=== PATIENT | female | born 1985 | race Caucasian/White ===

== ENCOUNTER 2016-07-10 09:10 | Inpatient (IN) ==
[~2016-07-10 09:10] MED LIST: *HR* Oxytocin 10 UNIT/ML VIAL IM ONE
--- NOTE | 2016-07-10 09:15 | Anesthesia Evaluation PreOp ---
Date of Encounter: 07/10/16 Time of Encounter: 09:12 - Past History Planned Operation: vaginal delivery/potential for csection Cardiac History: Denies any Significant Hx Pulmonary History: Denies Any Significant HX SERVICE AIDE History: Denies Any Significant HX Other Medical History: Denies Any Significant HX Anesthesia History: No Prior Anesthetic Complications, Past Anesthesia (wisdom teeth) : Yes Alcohol Use: none Drug use: none - Meds/Allergy Pre-op Review Medications Reviewed: Yes Allergies Reviewed: No Beta Blockers on Current Med List: No Anesthesia Exam BP123/62 P 93 R 18 Height: 5'5" Weight: 72kg NPO (# of Hours): 2 Pain Scale: 10 (with contractions) Pain Scale Used: Numeric (1 - 10) - HEENT Pupil (Motor): Pupils equal Mallampati: II Teeth: Normal Oral Opening: Greater than 3 - SERVICE AIDE SERVICE AIDE Motor: Normal RUE, Normal LUE, Normal RLE, Normal LLE, Normal Face SERVICE AIDE Sensory: Normal: RUE, LUE, RLE, LLE, Face - Cardiac Rhythm: Regular Murmur: None JVD: No Carotid Bruit: No - Pulmonary Breath Sounds: bilateral Clear Respiratory Effort: Symmetrical Anesthesia Assess/Plan ASA Score: 2 Modified Jaskaran Scale for Level of Consciousness: Cooperative, oriented, and tranquil Anesthetic Plan: General Autologous Blood: No Monitoring Plan: Standard Monitors Recovery Plan: PACU
[2016-07-10] MEDS ORDERED: Naloxone 0.4 MG/ML INJ IVP PRN (09:20)
[2016-07-10] MEDS ORDERED: Famotidine 20 MG/2 ML VIAL IVP PRN (09:20)
[2016-07-10 09:50] LABS: Basophils % 0.2 %; Eosinophils % 0.2 %; Hematocrit 34.6 % (35.3-44.9); Hemoglobin 11.8 g/dL (11.5-15.4); Immature Granulocytes % 0.8 % (0-4); Lymphocytes # 3.1 K/mcL (0.6-4.6); Lymphocytes % 18.4 %; Mean Corpuscular HGB Conc 34.1 g/dL (31.6-35.5); Mean Corpuscular Hemoglobin 30.9 pg (28.0-33.3); Mean Corpuscular Volume 90.6 fL (83.0-100.0); Mean Platelet Volume 11.1 fL (9.4-12.4); Monocytes # 0.8 K/mcL (0.0-1.3); Monocytes % 4.6 %; Neutrophils # 12.7 K/mcL (1.6-8.9); Platelet Count 210 K/mcL (140-400); Red Blood Count 3.82 M/mcL (3.82-4.97); Red Cell Distribution Width 12.9 % (11.5-14.5); Segmented Neutrophils % 75.8 %
[2016-07-10] MEDS ORDERED: Oxytocin 20 units/ LR 1000 mL 20 UNIT/1,000 ML BAG IVC ONE (10:07)
--- NOTE | 2016-07-10 10:22 | OB/GYN Procedure Note ---
Delivery - Delivery Date: 07/10/16 Provider: Lisa Garrett Intrapartum events: precipitous labor- <3hr Delivery induction: none Delivery monitor: external FHT Anesthesia: none Estimated Blood Loss: 150 - Infant (s) Infant A Infant Delivery Date: 07/10/16 Delivery Time: 10:00 Presentation: vertex Position: OA Route of delivery: Gender: Male Viability: Viable at 1 minute: 9 at 5 mins: 9 Shoulder Dystocia: not encountered Specimens collected: cord blood Placenta: spontaneous Cord: 3 umbilical vessels - Repair Episiotomy: none Laceration Description: Labial, Superficial - Complications Delivery complications: none Delivery comments: Patient on hands and knees and stated felt she needed to push. Maternal bearing down efforts to on liveborn male. Mother on hands and knees, vertex delivered OA, shoulders easily followed. No nuchal or shoulder dystocia encountered. passed through maternal legs and held by mother. Mother flipped to seated position and placed skin to skin. Cord clamped and cut after pulsations stopped. Perineum with superficial lacerations to labia. Placenta delivered spontaneously and intact (magali). Fundus firm Pitocin started. EBL 150. - Disposition Mom disposition: stable in LDR disposition: stable in LDR
--- NOTE | 2016-07-10 10:40 | OB/GYN History & Physical ---
Date of Encounter: 07/10/16 Time of Encounter: 10:34 Assessment and Plan (1) 38 weeks gestation of Current visit: Yes Status: Acute (2) Rupture of membranes with clear amniotic fluid Current visit: Yes Status: Acute admitted for labor to [facility] of liveborn male. See delivery note. History of Present Illness Chief complaint: labor HPI: Ms. Mata is a 30 year old female 38+2 gestation presents in labor after SROM, clear fluid, at 0500. Contractions soon started. + movement, denies vaginal bleeding. only complicated by lower uterine segment fibroid, seen by MFM. Labs:O+, GBS-, Rubella immune, all other serologies negative Past Med Surg Social Fam HX - Past Medical History Medical history: other Psychiatric history: no psych history - Past Surgical History Surgical History: no surgical history - Social History Smoking Status: Never smoker Smokeless Tobacco Status: No Alcohol use: none Drug use: none - Family History Mother Living Status: Still Living Hx Family Medical Disorders: No (Denies history) Obstetrical History - Pregnancies : 2 Para: 1 Term: 1 : 0 Ab's: 0 Livin Medications and Allergies Calcium + D Soft Chewable Tab 1 tab PO DAILY 07/10/16 [History] Formula Tablet 1 tab PO DAILY 07/10/16 [History] Allergies No Known Allergies Allergy (Verified 07/10/16 09:18) Review of System OB All systems PM: reviewed and no additional remarkable complaints except as stated Exam - Constitutional Constitutional: well developed, well nourished, no acute distress, average body habitus - Neck Neck exam: full ROM - Lungs Respiratory exam: CTAB - Cardiovascular Cardiovascular exam: RRR, +S1, +S2 - Abdomen Abdomen: Present: bowel sounds normal, gravid, non tender - Extremities Extremities exam: normal capillary refill, normal inspection - Vagina Vagina: Present: normal moisture - Anus/Rectum Anus/Rectum: Present: normal perianal skin Results Result Diagrams: 07/10/16 09:14 Abnormal lab results WBC 16.7 K/mcL (4.3-11.1) H 07/10/16 09:14 Hct 34.6 % (35.3-44.9) L 07/10/16 09:14 Neutrophils # 12.7 K/mcL (1.6-8.9) H 07/10/16 09:14 All other labs normal. - VTE Reasons for not Prescribing Prophylaxis: Treatment not Indicated - Low risk for VTE
[2016-07-10] MEDS ORDERED: Acetaminophen 325 MG TABLET PO PRN (13:07)
[2016-07-10] MEDS ORDERED: Lanolin 7 G OINT...G. TP PRN (13:07)
[2016-07-10] MEDS ORDERED: Ibuprofen 600 MG TABLET PO PRN (13:07)
[2016-07-10] MEDS ORDERED: Benzocaine/Menthol 56 GM AEROSOL SPRAY TP PRN (13:07)
[2016-07-10] MEDS ORDERED: Oxytocin 20 units/ LR 1000 mL 20 UNIT/1,000 ML BAG IVC SCH (13:07)
--- NOTE | 2016-07-11 00:34 | Discharge Summary ---
Date of Encounter: 07/11/16 Time of Encounter: 00:31 - Discharge Diagnosis (1) 38 weeks gestation of Priority: Primary Status: Acute (2) Rupture of membranes with clear amniotic fluid Priority: Primary Status: Acute (3) Vaginal delivery Priority: Primary Status: Acute Comments: Pt feels well meeting all milestones. Desires discharge later this morning. - Discharge Medications Prescriptions: Ibuprofen [Motrin] 600 mg PO Q6HR PRN #60 tablet PRN Reason: Cramping Docusate [Colace] 100 mg PO BID #60 capsule Home Medications: Calcium + D Soft Chewable Tab 1 tab PO DAILY 07/10/16 [History] Formula Tablet 1 tab PO DAILY 07/10/16 [History] Acetaminophen [Tylenol] 650 mg PO Q6HR PRN #0 tablet 07/11/16 [Rx] Benzocaine/Menthol [place] [Dermoplast [place]] 1 appl TP QID PRN #0 aerosol [Rx] Breast Pump [BREAST PUMP] 1 each .ROUTE AD #1 each 07/11/16 [Rx] Docusate [Colace] 100 mg PO BID #60 capsule 07/11/16 [Rx] Ibuprofen [Motrin] 600 mg PO Q6HR PRN #60 tablet 07/11/16 [Rx] Lanolin [Lansinoh] 1 appl TP QID PRN #0 oint...g. 07/11/16 [Rx] Vit/FA 1 each PO DAILY tablet 07/11/16 [Rx] Allergies/Adverse Reactions: Allergies No Known Allergies Allergy (Verified 07/10/16 09:18) Data Procedures and tests throughout hospitalization: Laboratory Tests 07/10/16 07/10/16 09:14 09:14 WBC 16.7 H RBC 3.82 Hgb 11.8 Hct 34.6 L MCV 90.6 MCH 30.9 MCHC 34.1 RDW 12.9 Plt Count 210 MPV 11.1 Immature Gran % 0.8 Seg Neutrophils % 75.8 Lymphocytes % 18.4 Monocytes % 4.6 Eosinophils % 0.2 Basophils % 0.2 Neutrophils # 12.7 H Lymphocytes # 3.1 Monocytes # 0.8 Eosinophils # 0.0 Basophils # 0.0 Blood Type O POSITIVE Antibody Screen NEGATIVE Labs on day of discharge: Labs from last 24 hours 07/10/16 07/10/16 09:14 09:14 WBC 16.7 H RBC 3.82 Hgb 11.8 Hct 34.6 L MCV 90.6 MCH 30.9 MCHC 34.1 RDW 12.9 Plt Count 210 MPV 11.1 Immature Gran % 0.8 Seg Neutrophils % 75.8 Lymphocytes % 18.4 Monocytes % 4.6 Eosinophils % 0.2 Basophils % 0.2 Neutrophils # 12.7 H Lymphocytes # 3.1 Monocytes # 0.8 Eosinophils # 0.0 Basophils # 0.0 Blood Type O POSITIVE Antibody Screen NEGATIVE Date of admission: 07/10/16 09:10 Consults: 07/10/16 13:07 Consult to Art Framing Manager [CONS] Routine Comment: Vaginal delivery, consult needed Discharging clinician: Lisa Garrett Anticipated date of discharge: 07/11/16 - Patient Status Disposition: Home, Self-Care Condition: Good Functional capacity at discharge: independent ambulation Overall status at discharge: patient is back to baseline - Discharge Instructions Follow Up With: Lisa Garrett CNM [Advanced Practice Nurse] - - Diet and Activity Activity: resume usual activities as tolerated Diet: regular diet Hospital Course Reason for admission: active labor Delivery: Episiotomy: none Laceration: none Other procedures: none complications: none Discharge diagnosis: IUP at term delivered Hospital course: Delivery - Delivery Date: 07/10/16 Provider: Lisa Garrett Intrapartum events: precipitous labor- <3hr Delivery induction: none Delivery monitor: external FHT Anesthesia: none Estimated Blood Loss: 150 - Infant (s) A Infant Delivery Date: 07/10/16 Delivery Time: 10:00 Presentation: vertex Position: OA Route of delivery: Gender: Male Viability: Viable at 1 minute: 9 at 5 mins: 9 Shoulder Dystocia: not encountered Specimens collected: cord blood Placenta: spontaneous Cord: 3 umbilical vessels - Repair Episiotomy: none Laceration Description: Labial, Superficial - Complications Delivery complications: none Delivery comments: Patient on hands and knees and stated felt she needed to push. Maternal bearing down efforts to on liveborn male. Mother on hands and knees, vertex delivered OA, shoulders easily followed. No nuchal or shoulder dystocia encountered. Infant passed through maternal legs and held by mother. Mother flipped to seated position and placed skin to skin. Cord clamped and cut after pulsations stopped. Perineum with superficial lacerations to labia. Placenta delivered spontaneously and intact (magali). Fundus firm Pitocin started. EBL 150. - Disposition Mom disposition: stable in PP and appropriate for discharge Time Attestation: Total time spent providing and/or coordinating discharge services: Time Spent: Less than 30 minutes Exam - Constitutional Vitals: Temp Pulse Resp BP Pulse Ox 98.1 F 74 16 124/62 96 07/10/16 20:30 07/10/16 20:30 07/10/16 20:30 07/10/16 20:30 07/10/16 20:30 General appearance IM: A&O X 3, pleasant, no acute distress - Respiratory Respiratory exam: Present: CTAB - Cardiovascular Cardiovascular exam IM: Present: RRR, +S1, +S2 - GI/Abdominal GI/Abdominal exam IM: normal bowel sounds - Uterus Position: At Umbilicus, Midline - Extremities Exam Extremities exam IM: Present: normal inspection - Neurological Exam Neurological exam: normal gait, oriented X3 - Psychiatric Additional comments: reports good mood
[2016-07-11 08:34] VITALS: BP 100/63
[2016-07-11] MEDS ORDERED: Prenatal Vit/FA 1 EACH TABLET PO SCH (09:00)
== END 2016-07-11 12:08 | disposition home or self-care (01) | DRG 775 ==
LOC: 1NENULAB → 1NENUOBS 13:06
PROVIDERS: ADMIT Student in an Organized Health Care Education/Training Program; ATTEND Student in an Organized Health Care Education/Training Program

== ENCOUNTER 2020-04-24 18:47 | Inpatient (IN) ==
[2020-04-24] MEDS ORDERED: Naloxone 0.4 MG/ML INJ IVP PRN (19:29)
[2020-04-24] MEDS ORDERED: Ondansetron 4 MG/2 ML VIAL IVP PRN (19:29)
[2020-04-24] MEDS ORDERED: Metoclopramide 10 MG/2 ML VIAL IVP PRN (19:29)
[2020-04-24] MEDS ORDERED: Famotidine 20 MG/2 ML VIAL IVP PRN (19:29)
[2020-04-24] MEDS ORDERED: Rho Immune Globulin 1,500 UNIT SYRINGE IM PRN (21:34)
[2020-04-24] MEDS ORDERED: Sennosides 8.6 MG TABLET PO PRN (21:34)
[2020-04-24] MEDS ORDERED: Benzocaine/Menthol 56 GM AEROSOL SPRAY TP PRN (21:34)
[2020-04-24] MEDS ORDERED: Lanolin 7 G OINT...G. TP PRN (21:34)
[2020-04-24] MEDS ORDERED: Acetaminophen 325 MG TABLET PO PRN (21:34)
[2020-04-24] MEDS ORDERED: Ibuprofen 600 MG TABLET PO PRN (21:34)
[2020-04-24] MEDS ORDERED: Measles/Mumps/Rubella Vacc 0.5 ML VIAL SQ PRN (21:34)
[2020-04-24] MEDS ORDERED: Oxytocin 20 units/ LR 1000 mL 20 UNIT/1,000 ML BAG IVC SCH (21:34)
[2020-04-25 03:51] LABS: Basophils % 0.2 %; Eosinophils % 0.2 %; Hematocrit 32.6 % (35.3-44.9); Hemoglobin 10.7 g/dL (11.5-15.4); Immature Granulocytes % 0.5 % (0-4); Lymphocytes # 2.1 K/mcL (0.6-4.6); Lymphocytes % 15.6 %; Mean Corpuscular HGB Conc 32.8 g/dL (31.6-35.5); Mean Corpuscular Hemoglobin 29.6 pg (28.0-33.3); Mean Corpuscular Volume 90.3 fL (83.0-100.0); Monocytes # 0.9 K/mcL (0.0-1.3); Monocytes % 6.5 %; Neutrophils # 10.2 K/mcL (1.6-8.9); Platelet Count 178 K/mcL (140-400); Red Blood Count 3.61 M/mcL (3.82-4.97); Red Cell Distribution Width 12.1 % (11.5-14.5); White Blood Count 13.2 K/mcL (4.3-11.1)
[2020-04-25] MEDS ORDERED: Prenatal Vit/FA 1 EACH TABLET PO SCH ×2 (09:00)
[2020-04-25 14:39] VITALS: BP 109/71
== END 2020-04-25 21:15 | disposition home or self-care (01) | DRG 807 ==
LOC: 1NENULAB 18:47 → 1NENUOBS 21:32
PROVIDERS: ADMIT Advanced Practice Midwife; ATTEND Advanced Practice Midwife